=== PATIENT | female | born 1965 | race Caucasian/White ===

== ENCOUNTER 2017-11-07 18:37 | Emergency (ER) | payer BC ==
[2017-11-07] MEDS ORDERED: Azithromycin 250 MG Tab ONE (19:00)
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
[2017-11-08 00:31] VITALS: BP 153/105
--- NOTE | 2017-11-08 01:41 | CR ---
AP CHEST, 11/07/17 The heart size is normal. The right apex is cut off. The visualized lungs are clear. No evidence of acute intrathoracic disease. [id number] [facility]
== END 2017-11-07 19:45 | disposition home or self-care (01) ==
LOC: LB.ED 18:37
DX: J10.1 Influenza due to other identified influenza virus with other respiratory manifestations (principal); I10 Essential (primary) hypertension; K21.9 Gastro-esophageal reflux disease without esophagitis; Z88.2 Allergy status to sulfonamides; Z88.8 Allergy status to other drugs, medicaments and biological substances; Z79.899 Other long term (current) drug therapy; Z87.891 Personal history of nicotine dependence
CPT/HCPCS: 36415; 71045; 80053; 85025; 99283; A9270

== ENCOUNTER 2019-02-12 11:48 | Emergency (ER) | payer BC ==
[2019-02-12 14:54] VITALS: BP 154/107
[2019-02-12] MEDS ORDERED: Methocarbamol 500 MG Tab ONE (15:15)
[2019-02-12] MEDS ORDERED: Acetaminophen/HYDROcodone 325-5 MG Tab ONE (15:15)
--- NOTE | 2019-02-13 12:39 | ER ---
HISTORY OF PRESENT ILLNESS: A 53-year-old lady here with complaints of mid back pain that she has had for about 6 weeks. She states that the symptoms are getting worse. She is having episodes that feels like a spasm that will happen and last for up to 30 seconds or so. This will happen multiple times during the day. She states that when this happen, she is unable to do anything until it backs off. The patient denies any recent falls or injuries. She does have Tylenol No. 3 and tramadol at home that she takes for back pain, but does not feel it is enough for her right now. The patient does have history of back surgeries x2, and she has had some chronic pain issues since then, including neuralgia type pain of the right leg, which is again chronic. OBJECTIVE: GENERAL APPEARANCE: The patient is awake and alert. No obvious respiratory distress. VITAL SIGNS: Reviewed. Blood pressure 150/118, she is afebrile, pulse 126. Examining the patient's midback area reveals there is tenderness involving the paraspinal muscles on both sides of the spine, involving the lower T-spine area and centrally located in this area as well. There is no obvious swelling or discoloration. LUNGS: Clear. CARDIAC: Heart sounds distinct without murmurs. SKIN: Warm and dry. LABORATORY DATA: CBC is normal. Sedimentation rate is 14. Comprehensive metabolic panel shows a GFR of 58, slightly low. AST is also at 44. DIAGNOSIS: Chronic back pain with muscle spasms. TREATMENT PLAN: We will start the patient on Robaxin 500 mg t.i.d. I will also give her some hydrocodone tablets that she can use, instead of Tylenol No. 3's, as needed. She is to apply ice or heat to the mid back area. Activity should be light duty. She tells me that she does have an appointment coming up in [place] for further evaluation involving her chronic pain. CRS/MODL /[id number]
== END 2019-02-12 15:22 | disposition home or self-care (01) ==
LOC: LB.ED 11:48
DX: M54.6 Pain in thoracic spine (principal); G89.29 Other chronic pain; M62.830 Muscle spasm of back
CPT/HCPCS: 36415; 80053; 85025; 85651; 99283; A9270-GY

== ENCOUNTER 2019-07-05 18:40 | Emergency (ER) | payer BC ==
[2019-07-05] MEDS ORDERED: Acetaminophen/HYDROcodone 325-5 MG Tab ONE (19:00)
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
[2019-07-05] MEDS: cloNIDine 0.1 MG Tab ONE (19:52)
[2019-07-05] MEDS: cloNIDine 0.1 MG Tab PO ONE (19:52)
[2019-07-05] MEDS: Lisinopril 5 MG Tab PO ONE (20:19)
[2019-07-05 22:08] VITALS: BP 165/120; PULSE 131
== END 2019-07-05 20:29 | disposition home or self-care (01) ==
LOC: LB.ED 18:40
DX: M54.16 Radiculopathy, lumbar region (principal); M62.838 Other muscle spasm; I10 Essential (primary) hypertension; Z79.899 Other long term (current) drug therapy; Z88.1 Allergy status to other antibiotic agents; Z88.8 Allergy status to other drugs, medicaments and biological substances
CPT/HCPCS: 93005; 99283; A9270

== ENCOUNTER 2019-09-26 15:33 | Emergency (ER) | payer BC ==
[2019-09-26] MEDS ORDERED: valACYclovir 1,000 MG Tab ONE (15:45)
[2019-09-26] MEDS ORDERED: Acetaminophen/HYDROcodone 325-5 MG Tab ONE (15:45)
[2019-09-26 16:20] VITALS: BP 183/102; PULSE 76
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
== END 2019-09-26 16:00 | disposition home or self-care (01) ==
LOC: LB.ED 15:33
DX: B02.9 Zoster without complications (principal); I10 Essential (primary) hypertension; Z88.2 Allergy status to sulfonamides; Z88.8 Allergy status to other drugs, medicaments and biological substances; Z79.899 Other long term (current) drug therapy
CPT/HCPCS: 99283; A9270-GY

== ENCOUNTER 2019-12-11 05:54 | Emergency (ER) | payer BC ==
[2019-12-11 06:28] VITALS: BP 159/104; PULSE 109
--- NOTE | 2019-12-11 08:58 | CR ---
DATE OF SERVICE: 12/11/19 CLINICAL DATA: Cough. PA AND LATERAL CHEST: Comparison made to a prior exam dated 11/07/17. The heart size is normal. The lungs are clear. No pneumothorax. No pleural effusions. There is degenerative disk disease at multiple levels of the thoracic spine. No evidence of acute intrathoracic disease. [id number] [facility]
--- NOTE | 2019-12-12 09:58 | ER ---
REASON FOR EMERGENCY ROOM VISIT: Fever, cough, and myalgias. 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 On Wednesday on her way home in the afternoon, she began to experience a cough, which persisted through the weekend. She felt some myalgias that increased over the weekend and fever. Her symptoms worsened, and she came to the emergency room. The cough has not been productive. She does have a sore throat that evolved over the past 24 hours as well. She does have a mild headache to go along with her cough and myalgias. She has had no GI complaints such as nausea, vomiting, or diarrhea. PAST MEDICAL HISTORY: Significant for: 1. Hypertension. 2. T and A as a child. 3. History of cholecystectomy. 4. Tubal ligation. 5. Arthroscopic surgery. MEDICATIONS: Include omeprazole and lisinopril with hydrochlorothiazide (see EMR). ALLERGIES: MICONAZOLE, PREDNISONE, SULFA, AND BACTRIM. REVIEW OF SYSTEMS: Pertinent positives and negatives as listed in the HPI. PHYSICAL EXAMINATION: GENERAL: She appears somewhat flushed. VITAL SIGNS: Temperature is 100.1, blood pressure 159/104, heart rate is 109, respirations 16, O2 sats 100% on room air. HEENT: Head is normocephalic. No conjunctivitis is noted. TMs are visualized and appear normal. Oropharynx with minimal erythema. Strep screen was obtained. NECK: Supple. There is no adenopathy. CHEST: Clear to auscultation with good air exchange bilaterally and no wheezes, rhonchi, or rales. CARDIAC: Regular rate without murmur. ABDOMEN: Soft, nontender. No hepatosplenomegaly. SKIN: No rashes. LABORATORY DATA: Her CBC is normal with a WBC of 6.8. Her strep screen was negative. Her chest x-ray does not show any active pulmonary disease and no infiltrative process. Her influenza A and B swab was positive for influenza A. IMPRESSION: Influenza A. PLAN: The onset of her symptoms was less than 72 hours ago. Hence, I think she could benefit from Tamiflu. I discussed this as an option and she indicated she would like to take this medication. I offered the medication as a prophylactic measure to her . He felt comfortable not taking it, as he has received a flu shot, which she had not received. Possible side effects of Tamiflu were discussed with the patient. She was given a prescription for Tamiflu 75 mg, dispensed #10, one p.o. b.i.d. Other supportive measures and precautions were discussed with her. She states that, to her knowledge, nobody at the convention has traveled outside the [place] and nobody appeared ill at the time. All questions were answered. They understand and agree. GATO/RASHI /[id number]
== END 2019-12-11 07:49 | disposition home or self-care (01) ==
LOC: LB.ED 05:54
DX: J10.1 Influenza due to other identified influenza virus with other respiratory manifestations (principal); I10 Essential (primary) hypertension; Z90.49 Acquired absence of other specified parts of digestive tract; Z98.51 Tubal ligation status; Z79.899 Other long term (current) drug therapy; Z88.2 Allergy status to sulfonamides; Z88.1 Allergy status to other antibiotic agents; Z88.8 Allergy status to other drugs, medicaments and biological substances
CPT/HCPCS: 36415; 71046; 85025; 87081; 87430; 87804; 87804-59; 99283; 99283-25

== ENCOUNTER 2021-07-06 18:54 | Emergency (ER) | payer BC ==
[2021-07-06 19:29] VITALS: BP 203/110; PULSE 95
[2021-07-06] MEDS ORDERED: Acetaminophen/HYDROcodone 325-5 MG Tab ONE (19:30)
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
== END 2021-07-06 19:40 | disposition home or self-care (01) ==
LOC: LB.ED 18:54
DX: G89.18 Other acute postprocedural pain (principal); N64.4 Mastodynia; I10 Essential (primary) hypertension; K21.9 Gastro-esophageal reflux disease without esophagitis; Z88.2 Allergy status to sulfonamides; Z88.8 Allergy status to other drugs, medicaments and biological substances; Z79.899 Other long term (current) drug therapy
CPT/HCPCS: 99283; A9270

== ENCOUNTER 2021-08-17 13:53 | Emergency (ER) | payer BC ==
[2021-08-17] MEDS ORDERED: Ketorolac 30 MG/ML SDV ONE (14:21)
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
[2021-08-17] MEDS ORDERED: Morphine 4 MG/ML VIAL IVPUSH ONE (14:46)
[2021-08-17] MEDS ORDERED: Morphine 4 MG/ML VIAL ONE (14:52)
[2021-08-17] MEDS ORDERED: cefTRIAXone 1 GM Vial ONE (16:34)
[2021-08-17] MEDS ORDERED: cefTRIAXone 2 GM Vial ONE (16:45)
--- NOTE | 2021-08-18 08:57 | CT ---
Date of Service: 08/17/21 Clinical Data: Abdominal pain with fever and rapid respiration ENHANCED CHEST CT: Multislice axial acquisition through the chest with IV contrast was performed. No priors. There are mild atelectatic changes in the dependent portion of both lungs. There is a 7 mm subpleural nodule in the left upper lobe [id number]. There is a 4 mm pleural based nodule in the right costophrenic angle posterolaterally. There are atelectatic changes in the dependent portion of both lungs. No areas of consolidation. No pneumothorax. No pleural effusions. The heart size is normal. No aortic aneurysm or dissection. No hilar or mediastinal adenopathy. The patient is status post right breast reconstruction with a breast implant. There is degenerative disk disease at multiple levels in the thoracic spine. No other significant findings. IMPRESSION: Subpleural nodules in both lungs as described above. If the patient is low risk no followup required. If the patient is high risk, consider 12 month followup. Other findings as discussed above. ENHANCED ABDOMEN AND PELVIC CT: Multislice acquisition through the abdomen and pelvis with IV, but without oral contrast was performed . No priors. The liver is normal size with homogeneous attenuation. No focal hepatic lesions. The patient is status post cholecystectomy. No biliary duct dilatation. The spleen appears normal. The pancreas appears normal. The right and left adrenals appear normal. The right and left kidneys enhance symmetrically. There is a 6 mm low-density lesion in the left renal cortex most likely representing a cyst. The kidneys are otherwise unremarkable. No hydronephrosis or hydroureter. The bladder is partially fluid filled. There is diffuse bladder wall thickening. This is probably related to nondistention. Cystitis should be considered. No evidence of appendicitis. There are air-fluid levels noted within the cecum, ascending colon, and proximal transverse colon. Colitis should be considered. No free air. No free fluid. No dilated loops of bowel. No adenopathy. No aortic aneurysm or dissection. The patient is status post hysterectomy. There is degenerative disk disease at multiple levels throughout the lower thoracic and lumbar spine. IMPRESSION: No acute abnormalities. Other findings as discussed above. [id number] [facility]
== END 2021-08-17 17:03 | disposition home or self-care (01) ==
LOC: LB.ED 13:53
DX: N39.0 Urinary tract infection, site not specified (principal); I10 Essential (primary) hypertension; K21.9 Gastro-esophageal reflux disease without esophagitis; Z88.2 Allergy status to sulfonamides; Z88.8 Allergy status to other drugs, medicaments and biological substances; Z79.899 Other long term (current) drug therapy; Z20.822 Contact with and (suspected) exposure to COVID-19
CPT/HCPCS: 36415; 71260; 74177; 80048; 81001; 83690; 84484; 85025; 87086; 87088; 87186; 96374; 99284-25; J0696; J1885; J2270; U0002